=== PATIENT | female | born 1940 | race Caucasian/White ===

== ENCOUNTER → 2021-01-09 | Outpatient (CLI) | payer MEDICARE ==
[~2021-01-09] MED LIST: B12; BIOTIN; ESCITALOPRAM OX10 MG PO; HYDROCODON-ACE1 EAC2 PO; LYRICA75 MG PO; MECLIZINE HCL25 MG PO; MELOXICAM7.5 MG PO; METOPROLOL; MIRAPEX0.5 MG PO; PROTONIX 40 MG40 M1 PO; TOPROL XL25 MG PO; VITAMIN D
== END ==
LOC: KOH-I 13:02
DX: S32.030A Wedge compression fracture of third lumbar vertebra, initial encounter for closed fracture (principal); M47.816 Spondylosis without myelopathy or radiculopathy, lumbar region
CPT/HCPCS: 72148

== ENCOUNTER → 2021-01-18 | Outpatient (CLI) | payer MEDICARE, MEDICAID | LOC: KOH-I 13:12 → EXRD 14:00 | DX: M80.08XA Age-related osteoporosis with current pathological fracture, vertebra(e), initial encounter for fracture (principal) | CPT/HCPCS: 77080 ==

== ENCOUNTER → 2021-02-07 | Outpatient (CLI) | payer MEDICARE, SELFPAY ==
[2021-02-07 12:02] LABS: HEMOGLOBIN 12.6 gm/dl (12.3-15.3); RED BLOOD COUNT 3.98 M/UL (4.00-5.10); WHITE BLOOD COUNT 4.7 K/UL (4.5-11.0)
== END ==
LOC: OPSV2 10:58
PROVIDERS: Orthopaedic Surgery
DX: Z01.818 Encounter for other preprocedural examination (principal)
CPT/HCPCS: 36415; 71046; 80048; 85027; 93005

== ENCOUNTER → 2021-02-13 | Day surgery (SDC) | payer MEDICARE, SELFPAY | END | disposition home or self-care (01) | LOC: OR 07:30 | DX: M80.08XA Age-related osteoporosis with current pathological fracture, vertebra(e), initial encounter for fracture (principal); I10 Essential (primary) hypertension; K21.9 Gastro-esophageal reflux disease without esophagitis; Z90.49 Acquired absence of other specified parts of digestive tract; Z96.653 Presence of artificial knee joint, bilateral; Z88.5 Allergy status to narcotic agent; Z88.8 Allergy status to other drugs, medicaments and biological substances; Z20.822 Contact with and (suspected) exposure to COVID-19; J44.9 Chronic obstructive pulmonary disease, unspecified; Z87.891 Personal history of nicotine dependence; F41.9 Anxiety disorder, unspecified; F32.9 Major depressive disorder, single episode, unspecified | CPT/HCPCS: C1713; J0690; J1100; J2001; J2405; J2704; J2710; J3010; J7120; Q9967 ==